=== PATIENT | female | born 1955 | race African-American/Black ===

== ENCOUNTER → 2017-04-19 | Outpatient (CLI) | payer OTHER ==
[~2017-04-19] MED LIST: COZAAR50 MG ORAL; CYANOCOBAL1000 MCG/M IM; FLUTICASONE PRO30 GM TOPIC; GABAPENTIN300 MG ORAL; GLIMEPIRIDE2 MG ORAL; GLUCOPHAGE500 MG ORAL; GLUCOPHAGE850 MG ORAL; IBUPROFEN600 MG ORAL; LOSARTAN POTAS100 MG ORAL; METFORMIN HCL500 M1 ORAL; NEXIUM40 MG ORAL; NITROFURANTOIN100 M2 ORAL; NORCO 5-325 TA1 EACH ORAL; TRIAMTERENE-HC1 EAC7 ORAL; TRUFORM COMPRE1 EACH MC; UNOBMED
--- NOTE | 2017-04-19 15:22 | Diagnostic Imaging Report ---
Indication: PAIN back pain x5 years Technique: Sagittal T1 and T2 fast spin echo, sagittal STIR, axial T1 and T2 fast spin-echo images of the lumbar spine Comparison: None Findings: Vertebral body heights are preserved. The disc spaces are preserved. Vertebral body marrow signal is preserved. Disc signal is preserved. Conus medullaris terminates at the L1 level. There is a 14 mm vertebral body hemangioma in the right side of the L1 vertebral body At L4-5, there is generalized circumferential annular bulge. This results in borderline narrowing of the spinal canal, narrows 9 mm AP dimension. This also results in mild bilateral neural foraminal compromise. At the remaining disc levels, no significant disc bulge or protrusion, spinal stenosis, or neural foraminal stenosis. The surrounding soft tissues are remarkable for the presence of a 3.4 cm left lower pole renal cyst as well as adjacent smaller cyst. There is also a small parapelvic cyst in the right upper pole Impression: No acute bony trauma Mild degenerative changes at L4-5, as described above resulting in borderline spinal stenosis and bilateral minimal neural foraminal compromise Incidental findings of bilateral renal cysts, L1 vertebral body hemangioma
== END | disposition home or self-care (01) ==
LOC: MRI 10:42
DX: M54.9 Dorsalgia, unspecified (principal); M48.06 Spinal stenosis, lumbar region; N28.1 Cyst of kidney, acquired
CPT/HCPCS: 72148